=== PATIENT | male | born 1960 ===

== ENCOUNTER 2016-12-12 09:12 | Day surgery (SDC) | payer BC ==
[~2016-12-12] VITALS: Ht 167.6 cm; Wt 96.8 kg
[2016-12-12] VITALS (8 sets, daily range): BP systolic 114–172; BP diastolic 50–78; PULSE 82–105; RESP 14–20; TEMP 98.7–100.4; O2SAT 94–98; Ht 167.6 cm; Wt 96.8 kg
[~2016-12-12 09:12] MED LIST: LR 1,000 ML IV PRN
[2016-12-12] MEDS ORDERED: D5W IV ONE (09:15)
[2016-12-12] MEDS ORDERED: LEVOFLOXACIN IV ONE (09:15)
--- OUTSIDE RECORDS SUMMARY | 2016-12-12 09:18 | XMS REPORT | Summary of Care ---
Author Author Rustam Smart M.D. Unknown Address [address] [place] [address] [place] [address] Phone Unavailable Care Team Providers Care Operating Room Surgical Technician Name Role Phone Rustam Smart M.D. Unavailable Unavailable Reynaldo Negron Unavailable Unavailable Unavailable Unavailable Functional Status Name Dates Details Functional status health issues are not documented Status: Name Dates Details Cognitive status health issues are not documented Status: Problems Name Dates Details Dysuria (788.1, R30.0) Status: Active Shortness of breath (786.05, R06.02) Status: Active Abscess of left knee (682.6, L02.416) Status: Active Nausea and/or vomiting (787.01, R11.2) Status: Active Right lateral abdominal pain (789.09, R10.9) Status: Active Right ureteral stone (592.1, N20.1) Status: Active Hydronephrosis, right (591, N13.30) Status: Active Medications Name Dates Details No Reported Medications Active Allergies and Adverse Reactions Name Dates Details No Known Drug Allergies (Allergy) Status: Active Past Medical History Name Dates Details History of Inguinal hernia (550.90, K40.90) Status: Resolved Procedures Procedure Dates Details History of Inguinal Hernia Repair History of Tonsillectomy History of Inguinal Hernia Repair Procedures not documented Immunization Name Dates Details Immunizations not documented Family History Name Dates Details Family history of Heart Disease (V17.49) Status: Active Name Dates Details Family history of kidney stones (V18.69, Z84.1) Status: Active Social History Name Dates Details - Status: Name Dates Details Former smoker Vital Signs Date Test Result Details 11-Dec-2016 16:45 BP Systolic 151 mm[Hg] Status: Comments: Location: ; Position: BP Diastolic 85 mm[Hg] Status: Comments: Location: ; Position: Heart Rate 87 /min Status: Comments: Location: ; 11-Dec-2016 13:21 BP Systolic 148 mm[Hg] Status: Comments: Location: ; Position: BP Diastolic 88 mm[Hg] Status: Comments: Location: ; Position: Temperature 97.5 f Status: Heart Rate 78 /min Status: Comments: Location: ; Height 66 in Status: Weight 212 lb Status: Physical Findings 97 Status: Comments: O2 Saturation Body Mass Index Calculated 34.22 kg/m2 Status: Body Surface Area Calculated 2.05 m2 Status: Results Date Description Value Details 11-Dec-2016 15:08 CBC w/ Auto Diff 7150 Comments: Manual differential indicated. WBC 11.9 K/uL (Above high threshold) Range: 4.5-11.0 RBC 4.94 mil/uL Range: 4.20-5.40 HGB 15.8 g/dL Range: 14.0-18.0 HCT 45.0 % Range: 42.0-53.0 MCV 91.2 fL Range: 80.0-99.0 MCH 32.1 pg Range: 27.3-32.5 MCHC 35.2 % Range: 32.0-36.0 RDW 13.5 % Range: 11.6-14.8 PLATELETS 248 K/uL Range: 150-400 MPV 7.4 fL Range: 6.0-11.0 15:30 Manual Differential 7400 SEGS 92 % (Above high threshold) Range: 37-80 BANDS 0 % Range: 0-7 LYMPH 6 % (Below low threshold) Range: 13-50 MONO 2 % Range: 0-12 EOSIN 0 % Range: 0-7 BASO 0 % Range: 0-3 NAUN LYMPH 0 % Range: 0-0 META 0 % Range: 0-0 MYELO 0 % Range: 0-0 PRO 0 % Range: 0-0 BLAST 0 % Range: 0-0 NUC RBC 0 /100 WBC Range: 0-0 SMUDGE 0 /100 WBC PLATELET Adequate Range: Adequate 15:40 CT AB/ PEL WITHOUT IV CONTRAST (FOR KIDNEY STONE) Comments: Exam Date : 12/11/2016 14:42Dictation Date: 12/11/2016 15:40 XC ABD PEL W/O (RENAL STONE) 15:45 BASIC METABOLIC PROFILE 1210 SODIUM 143 mmol/L Range: 133-144 POTASSIUM 4.1 mmol/L Range: 3.5-5.1 CHLORIDE 110 mmol/L Range: 98-110 CARBON DIOXIDE 21.0 mmol/L (Below low threshold) Range: 23.0-33.0 ANION GAP 12 mmol/L Range: 6-16 BUN 26 mg/dL (Above high threshold) Range: 7-18 CREATININE, SERUM 1.55 mg/dL (Above high threshold) Range: 0.70-1.30 EST GFR, 56 ml/min (Below low threshold) Range: >60 EST GFR, NON-AFR HONDURAN 46 ml/min (Below low threshold) Range: >60 Comments: EST GFR is reported in ml/min per 1.73 m2 of body surface area. ----- BUN:CREATININE RATIO 17 GLUCOSE 133 mg/dL (Above high threshold) Range: 70-100 CALCIUM 8.6 mg/dL Range: 8.5-10.1 17:02 Urinalysis, Reflex to Microscopic or Culture PRN 8005 pH 5.5 Range: 5.0-7.5 SP GRAVITY >=1.030 (Abnormal) Range: 1.010-1.030 APPEARANCE CLEAR Range: Clear COLOR YELLOW Range: Straw-Yellow PROTEIN TRACE mg/dL Range: Negative-Trace GLUCOSE NEGATIVE mg/dL Range: Negative KETONE 40 mg/dL (Abnormal) Range: Negative BILIRUB SMALL (Abnormal) Range: Negative BLOOD TRACE (Abnormal) Range: Negative UROBIL 0.2 EU/dL Range: 0.2-1.0 NITRITE NEGATIVE Range: Negative LEUK NEGATIVE Range: Negative 17:02 Urine Microscopic UMIC RBC 0-2 /HPF Range: 0-2 HYAL CAST 0-2 /LPF Range: 0-2 MUCUS 4+ /LPF (Abnormal) Range: Negative-2+ Plan of Care Name Dates Details Planned Observations Planned Goals not documented Planned Encounters Appointment; Provider: Rustam Smart M.D. On 12-Dec-2016 11:00 Instructions Name Dates Details Instructions not documented Encounters Appointment; Jordy Harp D.O. Encounter Diagnosis: Problem not documented On 11-Dec-2016 13:10
--- OUTSIDE RECORDS SUMMARY | 2016-12-12 09:18 | XMS REPORT | Summary of Care ---
Author Author Jordy Harp D.O. Organization Unknown Address [address], [place] [id number] Phone Unavailable Care Team Providers Care Civil Engineer Land Development Name Role Phone Uzma Harp D.O. Unavailable Unavailable Reynaldo Negron Unavailable Unavailable Unavailable [...] low threshold) Range: >60 EST GFR, NON-AFR RUSSIAN 46 ml/min (Below low threshold) Range: >60 [...] Goals not documented Planned Encounters Appointment; Provider: Schedule Radiology On 11-Dec-2016 15:00 Interventions Provided Labs/Procedures/Imaging* BASIC METABOLIC PROFILE 1210; Done: Dec 11 2016 2:58PM * CBC w/ Auto Diff 7150; Done: Dec 11 2016 2:58PM * Urinalysis, Reflex to Microscopic or Culture PRN 8005; Done: Dec 11 2016 4: 49PM Instructions Name Dates Details Instructions not documented Encounters Appointment; Jordy Harp D.O. Encounter Diagnosis: Problem not documented On 11-Dec-2016 13:10
--- NOTE | 2016-12-12 09:58 | DI ---
EXAM: KUB DICTATION LOCATION: [place] INDICATION: ITS.REASON: RIGHT URETEROLITHIASIS COMPARISON STUDY: None available. FINDINGS: Abdomen: The bowel gas pattern is unremarkable. There is no evidence for bowel obstruction or free intraperitoneal air. No abnormal radiopacities overlying the abdomen. The lung bases are clear. Skeletal Structures: The visualized skeletal structures are within normal limits for the patient's age. IMPRESSION: 1. Nonobstructive bowel gas pattern. .
[2016-12-12] MEDS ORDERED: IOHEXOL 300 MG/ML 50ml INJECTION ONE (10:19)
[2016-12-12] MEDS ORDERED: GENTAMICIN 80 MG/2 ML INJECTION ONE (10:19)
[2016-12-12] MEDS ORDERED: OXYC-532 PO (10:26)
[2016-12-12] MEDS ORDERED: LIDOCAINE 1% (10mg/ml) 2ml SDV INJ ONE (10:30)
--- NOTE | 2016-12-12 11:02 | ANESPREOP ---
Anesthesia Record Date and Time DATE: 12/12/16 TIME: 10:59 Pre-Op Diagnosis right ureterolithiasis Proposed Surgical Procedure cysto, right retrograde pyelogram ureteroscopy, laser lithotripsy NPO since: mn Allergies: Coded Allergies: No Known Allergies (Unverified , 12/12/16) Ht/Wt/BMI Height: 5 ' 6.00 " Weight: 96.800 kg BMI: 34.4 kg/m2 Vital Signs Date Time Temp Pulse Resp B/P Pulse Ox O2 Delivery O2 Flow Rate FiO2 12/12/16 09:50 100.4 95 20 172/78 98 Room Air Medications Inpatient Medications Current Medications Medications (Trade) Dose Ordered Sig/Yajaira Start Time Stop Time Status Last Admin Dose Admin Lactated Ringer's (Lactated Ringers) 1,000 ml @ 0 mls/hr Q0M PRN 12/12/16 09:08 12/12/16 10:24 50 MLS/HR Oxycodone HCl/Acetaminophen (Oxycodon-Acetaminophen 7.5-325) 7.5-325 Tablet, 1 TAB PO Q4H PRN for PAIN, (Reported) Take 1 tablet,by mouth, every 4 hours for Pain Last Taken: on 12/11/16 2300 Currently on Beta Ada: No Medical/Surgical History Anesthesia PMH: Reports: Anesthesia Reactions (nausea), Sleep Apnea, Denies: Cancer, Glaucoma, Malignant Hyperthermia (no family history MH), Renal Disease Smoking Status: Never smoker Substance Use Type: does not use Past Surgical History Orthopedic Surgeries: No Abdominal Surgeries: Yes - inguinal hernia with mesh Genitourinary Surgeries: No Cardiac Surgeries: No Endocrine Surgeries: No Reproductive Surgeries: No Neurological Surgeries: No Ear Surgeries: No Nose Surgeries: No Throat Surgeries: No Other Surgeries: No Anesthesia Adverse Reactions: FOUND none Family Hx of Anesthesia Advers: none Pertinent Findings EKG Rhythm: Sinus Rhythm Physical Exam Respiratory: Bilat breath sounds equal, Lungs clear Cardiovascular: FOUND Regular rate, rhythm, FOUND No murmur Airway Assessment Mallampati Score: II TMD: 3 Fingerbreadths Neck Extension: Good Overall Assessment: No Airway Concerns ASA: 1 Plan Anesthesia Plan: TIVA, LMA, GETA Discussion Discussed risks/options/alternatives of anesthesia and questions answered. Patient consents. Nursing pain assessment noted. Attestation Statement Prior to the delivery of any anesthetic medication, I examined the patient, developed the plan, obtained the patient's consent and discussed the risk and benefits of the procedure with the patient/guardian. KWASI RIOS CRNA December 12, 2016 11:02
[2016-12-12] MEDS ORDERED: MIDAZOLAM 2mg/2ml INJECTION ONE (11:06)
[2016-12-12] MEDS ORDERED: LIDOCAINE 2% (20mg/ml) 5ml PF SDV ONE (11:06)
[2016-12-12] MEDS ORDERED: KETAMINE 500mg/10ml INJECTION ONE (11:06)
[2016-12-12] MEDS ORDERED: PROPOFOL 500mg 50 ML IV ONE (11:06)
[2016-12-12] MEDS ORDERED: FENTANYL 100mcg/2ml INJECTION ONE (11:06)
[2016-12-12] MEDS ORDERED: HYDROMORPHONE 2mg/ml INJECTION IV PRN (11:30)
[2016-12-12] MEDS ORDERED: LR 1,000 ML IV SCH (12:04)
[2016-12-12] MEDS ORDERED: MORPHINE SULFATE 4 MG SYRINGE IV PRN (12:15)
[2016-12-12] MEDS ORDERED: BELLADONNA-OPIUM 16.2-60mg SUPP RECTALLY PRN (12:15)
[2016-12-12] MEDS ORDERED: HYOSCYAMINE 0.125 MG SUBLINGUAL TABLET SL PRN (12:15)
[2016-12-12] MEDS ORDERED: PHENAZOPYRIDINE 95 MG TABLET PO PRN (12:15)
[2016-12-12] MEDS ORDERED: ONDANSETRON 4mg/2ml INJECTION IV PRN (12:15)
[2016-12-12] MEDS ORDERED: HYDROCODONE/APAP 5 mg/325 mg TABLET PO PRN (12:15)
[2016-12-12] MEDS ORDERED: KETOROLAC 30mg/ml INJECTION IV PRN (12:15)
[2016-12-12] MEDS ORDERED: HYOS-7 SL (12:23)
[2016-12-12] MEDS ORDERED: PHEN95TA25 PO (12:23)
--- NOTE | 2016-12-12 12:30 | ANESPO ---
Post-Op Note Date 12/12/16 Time: 12:25 Status Pt Participated in Evaluation: Pt participated in person Vital Signs Date Time Temp Pulse Resp B/P Pulse Ox O2 Delivery O2 Flow Rate FiO2 12/12/16 12:15 96 20 116/58 96 Room Air 12/12/16 12:06 98.7 Respiratory Function: Airway patent Mental Status: Alert/oriented Pain Level Intensity: 1 Hydration: Taking po fluids, IV infusing Complications during Recovery None apparent Follow-Up Instructions Instructions Per Surgeon KWASI RIOS CRNA December 12, 2016 12:30
--- NOTE | 2016-12-12 12:36 | DI ---
EXAM: RF RETROGRADE PYELOGRAM RIGHT LOCATION OF DICTATION: [place] HISTORY: ITS.REASON: RT RETROGRADE / STENT PLACEMENT COMPARISON: No prior studies available for comparison. TECHNIQUE: Several fluoroscopic images were obtained for right retrograde program and states placement. FINDINGS: A total of 10 fluoroscopic images were obtained during right retrograde pyelogram. Initial images demonstrate a wire/catheter extending into the right renal pelvis. Contrast is demonstrated within the right renal collecting system and ureter. The right renal pelvis is mildly prominent without significant hydronephrosis. There is a small filling defect within the distal right ureter which could represent a small calculus or air pocket. Subsequent images demonstrate placement of a double pigtail right ureteral stent which appears to be in good position. Impression: 1. Right retrograde pyelogram followed by right double pigtail ureteral stent placement. 2. Small filling defect within the distal right ureter could represent a small gas bubble or a calculus. .
[2016-12-12] MEDS ORDERED: NITR100C PO (12:50)
--- NOTE | 2016-12-12 20:04 | OPNOTEF ---
DATE OF OPERATION 12/12/2016 SURGEON Rustam Smart MD PREOPERATIVE DIAGNOSIS Right ureterolithiasis with hydronephrosis. POSTOPERATIVE DIAGNOSIS Right ureterolithiasis, right ureteral stricture, hydronephrosis. OPERATION PERFORMED Cystoscopy with right retrograde pyelogram. Ureteroscopic holmium laser lithotripsy with ureteral stricture dilation and stone basket. Insertion of ureteral stent, 6-Fr x 24 cm. ANESTHESIA TIVA INDICATIONS Mr. Cook is a 56-year-old male with intermittent acute right renal flank pain with evaluation showing at least a 6-mm stone at the ureterovesical junction with hydronephrosis. The patient was admitted for stone treatment by ureteroscopy. DESCRIPTION OF PROCEDURE The patient was taken to the cystoscopy suite and under intravenous anesthesia, he was placed in dorsal lithotomy position and prepped and draped in usual fashion for cystoscopic procedures. Fluoroscopically, the stone in the right distal ureter was very difficult to see as it is a very faint stone. A 21-Fr cystoscope was inserted into the bladder under direct visualization without difficulty. The bladder was at least moderately trabeculated but no bladder tumor, foreign body or stone was seen. The ureteral orifices appeared normal in location and contour bilaterally. The bladder outlet showed mild obstruction from small BPH. The urethra was free of stricture. The right ureteral orifice was cannulated with a 5-German open-ended ureteral catheter and a small amount of contrast injected under fluoroscopy. A large filling defect in the distal ureter just above the UPJ was found with a markedly dilated ureter above it. It appeared a very narrow ureter distal to the stone. A 0.035-gauge guidewire was inserted under fluoroscopy into the right ureteral orifice and placed into the right renal pelvis. The cystoscope was then backed out over the guidewire. A 7-Fr rigid ureteroscope was inserted over the guidewire and advanced to the bladder and attempts were made to place into the ureteral orifice. Only a very short distance within the ureteral orifice was able to be seen. Ureteral caliber was simply too small. Therefore, a 15-Fr balloon dilator was loaded over the guidewire and placed into the ureteral orifice. Again, it was difficult to pass the dilating balloon past the ureterovesical junction. It required some force before it popped into the ureteral orifice under fluoroscopic guidance. We then dilated the ureter to 15-Fr. It required over 14 atmospheric pressure before the very tight short band of stricture was fully dilated. This was inside of the ureteral orifice below the stone. The balloon dilator was then removed and the ureteroscope was then able to be inserted next to the guidewire into the ureter until the stone was visualized. This was an irregular-shaped, ma-colored stone, fairly large - estimated to be at least 7 mm in size. Using 364-micron Holmium Laser Fiber, 1 joule and 10 Hz per second, the stone was fragmented into a half-dozen pieces. Following the successful fragmentation, a Graspit 2.6 basket was used to remove individual stones from the ureter. Stone retrieved will be sent for analysis. Final passage of the ureteroscope was up to the mid ureter and we found no further stone fragments. The ureteroscope was removed with the guidewire in place. The cystoscope was backloaded over the guidewire and a 6-Fr x 24 cm pigtail stent was placed into the right renal system under fluoroscopic guidance. Stent location and position were confirmed to be satisfactory by fluoroscopically and also cystoscopically. The bladder was emptied out and the cystoscope was removed. The string attached to the distal end of the stent was trimmed at the meatus. Patient was then taken to the recovery room in stable condition. NELSON
--- NOTE | 2016-12-14 11:57 | NUR ---
ATTEMPTED TO CALL TO FOLLOW UP ON DPOA INFORMATION, NO ANSWER, NO VOICE MESSAGE.
== END 2016-12-12 13:35 | disposition home or self-care (01) ==
LOC: EDSEX → SCU 09:12
PROVIDERS: ATTEND Specialist
DX: N20.1 Calculus of ureter (principal); N13.1 Hydronephrosis with ureteral stricture, not elsewhere classified; N32.89 Other specified disorders of bladder; N40.1 Benign prostatic hyperplasia with lower urinary tract symptoms; N13.8 Other obstructive and reflux uropathy; Z87.891 Personal history of nicotine dependence
CPT/HCPCS: 52356; 74000; 74420; 82365; C2617; J1580; J1956; J2250; J2704; J3010; J7120; Q9967